=== PATIENT | male | born 1990 | race Caucasian/White ===

== ENCOUNTER 2016-09-26 19:40 | Emergency (ER) | payer OTHER ==
[2016-09-26 20:07] VITALS: BP 142/74
== END 2016-09-26 22:12 | disposition home or self-care (01) ==
LOC: ED 19:40
DX: S51.012A Laceration without foreign body of left elbow, initial encounter (principal); W22.03XA Walked into furniture, initial encounter; Y93.89 Activity, other specified; Y92.89 Other specified places as the place of occurrence of the external cause; Y99.8 Other external cause status

== ENCOUNTER 2018-12-24 21:19 | Emergency (ER) | payer SELFPAY ==
[~2018-12-24] VITALS: Ht 175.3 cm; Wt 116.8 kg
[2018-12-24 21:35] VITALS: Ht 175.3 cm; Wt 116.8 kg
[2018-12-24 22:56] VITALS: BP 137/85
== END 2018-12-24 22:56 | disposition home or self-care (01) ==
LOC: ED 21:19
DX: F41.9 Anxiety disorder, unspecified (principal); R11.0 Nausea; Z88.5 Allergy status to narcotic agent

== ENCOUNTER 2020-03-13 19:04 | Emergency (ER) | payer MEDICAID ==
[~2020-03-13] VITALS: Ht 177.8 cm; Wt 121.1 kg
[2020-03-13 19:30] VITALS: Ht 177.8 cm; Wt 121.1 kg
[2020-03-13 20:28] VITALS: BP 133/80
== END 2020-03-13 20:28 | disposition home or self-care (01) ==
LOC: ED 19:04
DX: L73.9 Follicular disorder, unspecified (principal); R03.0 Elevated blood-pressure reading, without diagnosis of hypertension; Z88.5 Allergy status to narcotic agent